=== PATIENT | female | born 1960 | race African-American/Black ===

== ENCOUNTER 2018-03-01 14:38 | Emergency (ER) | payer SELFPAY ==
--- NOTE | 2018-03-01 15:30 | PHYS DOC ---
Past History Past Medical History: Anxiety, Arthritis Adult General Chief Complaint Chief Complaint: BACK PAIN - NO INJURY HPI HPI Patient is a 57 year old F who presents with left shoulder and low back pain. She states that this pain is chronic however it's been worse over the past several weeks. She feels that her pain is worse and she has had to assist with lifting her mother. Her pain is worse with movement and improved with rest and positioning. She has no other associated symptoms. She has no other exacerbating or alleviating factors. Review of Systems Review of Systems Constitutional: Denies fever or chills [] Eyes: Denies change in visual acuity, redness, or eye pain [] HENT: Denies nasal congestion or sore throat [] Respiratory: Denies cough or shortness of breath [] Cardiovascular: No additional information not addressed in HPI [] GI: Denies abdominal pain, nausea, vomiting, bloody stools or diarrhea [] : Denies dysuria or hematuria [] Musculoskeletal: Negative except history of present illness Integument: Denies rash or skin lesions [] Neurologic: Denies headache, focal weakness or sensory changes [] Endocrine: Denies polyuria or polydipsia [] All other systems were reviewed and found to be within normal limits, except as documented in this note. Family History Family History No pertinent family medical history was reported Current Medications Current Medications Current medications were reviewed Allergies Allergies Allergies reviewed Physical Exam Physical Exam Constitutional: Well developed, well nourished, no acute distress, non-toxic appearance. [] HENT: Normocephalic, atraumatic Eyes: EOMI, conjunctiva normal, no discharge. [] Neck: Normal range of motion, no tenderness, supple, no stridor. [] Cardiovascular:Heart rate regular rhythm, Lungs & Thorax: Bilateral breath sounds clear to auscultation [] Abdomen: Bowel sounds normal, soft, no tenderness, no masses, no pulsatile masses. [] Skin: Warm, dry, no erythema, no rash. [] Back: no CVA tenderness. [] Mild tenderness to palpation in the paraspinal muscle in the lumbar and thoracic spine bilaterally Extremities: no cyanosis, no clubbing, ROM intact, no edema. [] Mild tenderness to palpation over the trapezius on the left shoulder Neurologic: Alert and oriented X 3, normal motor function, normal sensory function, no focal deficits noted. [] Psychologic: Affect normal, judgement normal, mood normal. [] Current Patient Data Vital Signs Normal vital signs. Please review nursing recommendation for specifics EKG EKG [] Radiology/Procedures Radiology/Procedures [] Course & Med Decision Making Course & Med Decision Making Pertinent Labs and Imaging studies reviewed. (See chart for details) [] Dragon Disclaimer Dragon Disclaimer This electronic medical record was generated, in whole or in part, using a voice recognition dictation system. Departure Departure: Impression: Primary Impression: Trapezius muscle spasm Additional Impression: Spasm of muscle of lower back Disposition: HOME, SELF-CARE Condition: LEFT WITHOUT BEING SEEN Referrals: PCPCYNTHIA (PCP) Patient Instructions: Back Exercises, Back Pain, Adult Additional Instructions: Barbi was seen in the emergency department for shoulder and back pain. No emergency medical condition was found on history or physical exam. She was strongly encouraged to stretch and strengthen her shoulder and back. He is advised consider massage therapy and physical therapy for further management. She is given a prescription for Flexeril to use as needed for pain. She was also given a prescription for Voltaren gel to use as needed for pain. She is advised follow-up with her primary care doctor in the next 3-5 days for further management. Scripts Diclofenac Sodium (VOLTAREN) 100 Gm Gel..gram. 1 GM TP QID, #100 GM 2 Refills Prov: MARILOU RINCON MD 03/01/18 Cyclobenzaprine Hcl (CYCLOBENZAPRINE HCL) 10 Mg Tablet 1 TAB PO TID Y for PAIN for 3 Days, #9 TAB Prov: MARILOU RINCON MD 03/01/18 Problem Qualifiers MARILOU RINCON MD Mar 01, 2018 15:30
[2018-03-01] MEDS ORDERED: DICL100G18 TP (16:31)
[2018-03-01] MEDS ORDERED: CYCL-331 PO (16:31)
[2018-03-01 17:28] VITALS: BP 113/71
== END 2018-03-01 17:28 | disposition home or self-care (01) ==
LOC: ER 14:38
DX: M62.838 Other muscle spasm (principal); M25.512 Pain in left shoulder; M54.5 Low back pain; F41.9 Anxiety disorder, unspecified; M19.90 Unspecified osteoarthritis, unspecified site
CPT/HCPCS: 99283

== ENCOUNTER 2018-08-01 11:47 | Emergency (ER) | payer SELFPAY ==
[~2018-08-01] VITALS: Ht 170.2 cm; Wt 72.6 kg
[~2018-08-01 11:47] MED LIST: CYCL-331 PO; DICL100G18 TP
[2018-08-01 12:25] VITALS: BP 145/96
--- NOTE | 2018-08-01 12:51 | PHYS DOC ---
Past History Past Medical History: Anxiety, Arthritis, Depression, Hypertension Past Surgical History: Cholecystectomy Alcohol Use: Occasionally Drug Use: Marijuana Adult General Chief Complaint Chief Complaint: HEADACHE HPI HPI 58-year-old female presents with dizziness for the last 1 week that she describes as an off balance feeling. She is concerned about a mass on her forehead that she says just appeared. Patient denies any recent trauma or hitting her head. She has been having nausea with occasional vomiting every morning for more than a week. It is occasionally blood-streaked. She denies bloody or dark stool. Patient has a known history of gastric ulcers for which she is on medication. She takes medication intermittently. Her primary concern today is the "mass" on her forehead in the dizziness. She denies fever or chills. Review of Systems Review of Systems Constitutional: Denies fever or chills [] Eyes: Denies change in visual acuity, redness, or eye pain [] HENT: Denies nasal congestion or sore throat. New soft tissue mass in the forehead [] Respiratory: Denies cough or shortness of breath [] Cardiovascular: No additional information not addressed in HPI [] GI: Nausea, vomiting. No bloody stools or diarrhea [] : Denies dysuria or hematuria [] Musculoskeletal: Denies back pain or joint pain [] Integument: Denies rash or skin lesions [] Neurologic: Denies headache, focal weakness or sensory changes. Dizziness [] Endocrine: Denies polyuria or polydipsia [] All other systems were reviewed and found to be within normal limits, except as documented in this note. Allergies Allergies Allergies Coded Allergies Type Severity Reaction Last Updated Verified lisinopril Allergy Unknown Swelling 03/01/18 Yes Physical Exam Physical Exam Constitutional: Well developed, well nourished, no acute distress, non-toxic appearance. [] HENT: Normocephalic, atraumatic, bilateral external ears normal, oropharynx moist, no oral exudates, nose normal. Minimal localized edema in the center of the forehead. No palpable mass or obvious injury. [] Eyes: PERRLA, EOMI, conjunctiva normal, no discharge. [] Neck: Normal range of motion, no tenderness, supple, no stridor. [] Cardiovascular:Heart rate regular rhythm, no murmur [] Lungs & Thorax: Bilateral breath sounds clear to auscultation [] Abdomen: Bowel sounds normal, soft, no tenderness, no masses, no pulsatile masses. [] Skin: Warm, dry, no erythema, no rash. [] Back: No tenderness, no CVA tenderness. [] Extremities: No tenderness, no cyanosis, no clubbing, ROM intact, no edema. [] Neurologic: Alert and oriented X 3, normal motor function, normal sensory function, no focal deficits noted. [] Psychologic: Affect normal, judgement normal, mood normal. [] Current Patient Data Vital Signs Vital Signs Date Time Temp Pulse Resp B/P (MAP) Pulse Ox O2 Delivery O2 Flow Rate FiO2 08/01/18 12:25 98.0 96 20 96 Room Air EKG EKG [] Radiology/Procedures Radiology/Procedures [] Impressions: CT HEAD INDICATION: HEADACHE/DIZZINESS X 2 WEEKS, PT SHIELDED COMPARISON: None Available. Exposure: One or more of the following individualized dose reduction techniques were utilized for this examination: 1. Automated exposure control 2. Adjustment of the mA and/or kV according to patient size 3. Use of iterative reconstruction technique TECHNIQUE: 5 mm contiguous axial images were obtained from the skull base to the vertex in both bone and soft tissue algorithm. FINDINGS: No abnormal attenuation within the brain parenchyma. No evidence of acute intracranial hemorrhage. No extra-axial fluid collections. No mass effect or midline shift. Ventricular size is appropriate. Basal cisterns are patent. No fractures identified.Palacios-white differentiation is preserved.Globes and orbits are within normal limits. Paranasal sinuses and mastoid air cells are clear. IMPRESSION: No acute intracranial findings. Electronically signed by: Dion Hughes MD (08/01/2018 1:39 PM) [facility] Course & Med Decision Making Course & Med Decision Making Pertinent Labs and Imaging studies reviewed. (See chart for details) The patient's head CT is unremarkable. Her labs are unremarkable except for a decreased potassium. The mass that she is concerned about on her head only appears to be a slight prominence of the skin. I do not see rash I do not see evidence of bruising or any other concerning sign. The patient is very anxious to go outside and smoke. She is stable for discharge at this time. [] Dragon Disclaimer Dragon Disclaimer This electronic medical record was generated, in whole or in part, using a voice recognition dictation system. Departure Departure: Referrals: PCP,CYNTHIA (PCP) GERRY DA SILVA DO Aug 01, 2018 12:51
[2018-08-01] MEDS ORDERED: IV NORMAL SALINE 1,000ML 1,000 ML IV ONE (13:00)
[2018-08-01] MEDS ORDERED: ONDANSETRON PF 4 MG/2 ML VIAL. IV ONE (13:25)
--- NOTE | 2018-08-01 13:43 | RAD ---
CT HEAD INDICATION: HEADACHE/DIZZINESS X 2 WEEKS, PT SHIELDED COMPARISON: None Available. Exposure: One or more of the following individualized dose reduction techniques were utilized for this examination: 1. Automated exposure control 2. Adjustment of the mA and/or kV according to patient size 3. Use of iterative reconstruction technique TECHNIQUE: 5 mm contiguous axial images were obtained from the skull base to the vertex in both bone and soft tissue algorithm. FINDINGS: No abnormal attenuation within the brain parenchyma. No evidence of acute intracranial hemorrhage. No extra-axial fluid collections. No mass effect or midline shift. Ventricular size is appropriate. Basal cisterns are patent. No fractures identified.Palacios-white differentiation is preserved.Globes and orbits are within normal limits. Paranasal sinuses and mastoid air cells are clear. IMPRESSION: No acute intracranial findings. Electronically signed by: Dion Hughes MD (08/01/2018 1:39 PM) [facility]
[2018-08-01 14:16] LABS: ALBUMIN 4.1 g/dL (3.4-5.0); ALBUMIN/GLOBULIN RATIO 1.1 (1.0-1.7); BASO % 1 % (0-3); CALCIUM 9.8 mg/dL (8.5-10.1); EOS # 0.1 x10^3/uL (0.0-0.7); EOS % 2 % (0-3); GFR 69.1; HEMATOCRIT 45.8 % (36.0-47.0); HEMOGLOBIN 15.5 g/dL (12.0-15.5); LYMPH # 2.4 x10^3/uL (1.0-4.8); LYMPH % 64 % (24-48); MEAN CORPUSCULAR HEMOGLOBIN 30 pg (25-35); MEAN CORPUSCULAR HGB CONC 34 g/dL (31-37); MEAN CORPUSCULAR VOLUME 90 fL (79-100); MONO # 0.2 x10^3/uL (0.0-1.1); MONO % 5 % (0-9); NEUT # 1.1 x10^3uL (1.8-7.7); NEUT % 28 % (31-73); PLATELET COUNT 242 x10^3/uL (140-400); POTASSIUM 3.1 mmol/L (3.5-5.1); RED BLOOD COUNT 5.09 x10^6/uL (3.50-5.40); RED CELL DISTRIBUTION WIDTH 14.3 % (11.5-14.5); TOTAL BILIRUBIN 0.5 mg/dL (0.2-1.0); WHITE BLOOD COUNT 3.8 x10^3/uL (4.0-11.0)
== END 2018-08-01 14:45 | disposition home or self-care (01) ==
LOC: ER 11:47
DX: R42 Dizziness and giddiness (principal); R11.2 Nausea with vomiting, unspecified; R51 Headache; R60.0 Localized edema; F41.9 Anxiety disorder, unspecified; F32.9 Major depressive disorder, single episode, unspecified; I10 Essential (primary) hypertension; Z88.8 Allergy status to other drugs, medicaments and biological substances
CPT/HCPCS: 36415; 70450; 80053; 83690; 85025; 96374; 99285; J2405; J7030

== ENCOUNTER 2019-09-02 16:36 | Emergency (ER) | payer MEDICAID ==
[2019-09-02 16:47] VITALS: BP 123/92
[2019-09-02] MEDS ORDERED: IPRATRPIUM/ALBUTEROL 0.5/2.5MG 3 ML NEBU. NEB ONE (17:00)
--- NOTE | 2019-09-02 17:21 | ED.ADGEN ---
Past History Past Medical History: Depression, GERD, Hypertension Past Surgical History: Cholecystectomy, Tubal ligation Alcohol Use: None Drug Use: None Adult General Chief Complaint Chief Complaint Cough, sore throat, chest pain HPI HPI Patient is a 59-year-old female AA female who presents with postnasal drip, cough, chest pain worse with deep breathing. Symptom onset was 4 days ago. No medications or therapy's taken prior to ED arrival. No fever chills, nausea vomiting or sweats. Denies shortness easing, history of asthma or COPD. No other acute symptoms or complaints.,[] Review of Systems Review of Systems Review symptoms as per history of present illness. [] All other systems were reviewed and found to be within normal limits, except as documented in this note. Current Medications Current Medications Current Medications Medications (Trade) Dose Ordered Sig/Deni Start Time Stop Time Status Last Admin Dose Admin Albuterol/ Ipratropium (Duoneb) 3 ml 1X ONCE 09/02/19 17:00 09/02/19 17:01 DC 09/02/19 17:00 3 ML Allergies Allergies Allergies Coded Allergies Type Severity Reaction Last Updated Verified lisinopril Allergy Unknown Swelling 03/01/18 Yes Physical Exam Physical Exam Constitutional: Well developed, well nourished, no acute distress, non-toxic appearance. [] HENT: Normocephalic, atraumatic, bilateral external ears normal, oropharynx m oist, nose nasal drip, nose normal. [] Eyes: PERRLA, EOMI, conjunctiva normal.. [] Neck: Normal range of motion, no tenderness, supple, no stridor. [] Cardiovascular:Heart rate regular rhythm, no murmur [] Lungs & Thorax: Bilateral breath sounds clear to auscultation on negative Homans signs. [] Abdomen: Bowel sounds normal, soft, no tenderness. [] Skin: Warm, dry, no erythema, no rash. [] Back: No tenderness, no CVA tenderness. [] Extremities: No tenderness, no cyanosis, no clubbing, ROM intact, no edema. [] Neurologic: Alert and oriented X 3, normal motor function, normal sensory function, no focal deficits noted. [] Psychologic: Affect normal, judgement normal, mood normal. [] Current Patient Data Vital Signs Vital Signs Date Time Temp Pulse Resp B/P (MAP) Pulse Ox O2 Delivery O2 Flow Rate FiO2 09/02/19 16:47 97.8 70 18 97 Room Air EKG EKG [] Radiology/Procedures Radiology/Procedures [CX-ray reviewed.] Course & Med Decision Making Course & Med Decision Making Pertinent Labs and Imaging studies reviewed. (See chart for details) [Symptoms consistent with dryness with postnasal drip and artery chest all pain from cough. Recommendations are supportive care with PCP follow-up.] Final Impression Final Impression [#1 rhinitis with postnasal drip #2 chest wall pain Dragon Disclaimer Dragon Disclaimer This electronic medical record was generated, in whole or in part, using a voice recognition dictation system. GERRY MAIN DO Sep 02, 2019 17:21
[2019-09-02] MEDS ORDERED: FEXO180T81 PO (17:25)
[2019-09-02] MEDS ORDERED: ALBU2.5V8 IH (17:25)
--- NOTE | 2019-09-02 17:31 | RAD ---
Exam: Chest 2 views INDICATION: Chest pain TECHNIQUE: Frontal and lateral views the chest Comparisons: None FINDINGS: The cardiomediastinal silhouette and pulmonary vessels are within normal limits. The lung and pleural spaces are clear. IMPRESSION: No acute cardiopulmonary process. Electronically signed by: Murtaza Avendano MD (09/02/2019 5:28 PM) [id number]
== END 2019-09-02 17:27 | disposition home or self-care (01) ==
LOC: ER 16:36
DX: R07.89 Other chest pain (principal); J31.0 Chronic rhinitis; K21.9 Gastro-esophageal reflux disease without esophagitis; I10 Essential (primary) hypertension; Z88.8 Allergy status to other drugs, medicaments and biological substances
CPT/HCPCS: 71046; 99284; J7620